=== PATIENT | female | born 1945 ===

== ENCOUNTER → 2021-04-05 | Outpatient (CLI) | payer SELFPAY | END | disposition home or self-care (01) | LOC: LAB SHORT 14:00 | DX: D22.5 Melanocytic nevi of trunk (principal); D22.61 Melanocytic nevi of right upper limb, including shoulder; D22.39 Melanocytic nevi of other parts of face; D22.62 Melanocytic nevi of left upper limb, including shoulder; L81.4 Other melanin hyperpigmentation; L82.1 Other seborrheic keratosis; L24.7 Irritant contact dermatitis due to plants, except food; B37.2 Candidiasis of skin and nail | CPT/HCPCS: 87070; 87205 ==